=== PATIENT | male | born 1990 | race Two or more races ===

== ENCOUNTER 2021-08-17 10:52 | Emergency (ER) | payer BC ==
[2021-08-17] MEDS ORDERED: Ibuprofen 600 MG Tab PO ONE (11:29)
== END 2021-08-17 13:09 | disposition home or self-care (01) ==
LOC: JP.ED 10:52
DX: S82.831A Other fracture of upper and lower end of right fibula, initial encounter for closed fracture (principal); F17.210 Nicotine dependence, cigarettes, uncomplicated; X50.9XXA Other and unspecified overexertion or strenuous movements or postures, initial encounter
CPT/HCPCS: 29515; 73610; 99282; 99283; A9270

== ENCOUNTER 2022-06-21 12:25 | Emergency (ER) | payer BC ==
[2022-06-21] MEDS ORDERED: Ketorolac 30 MG/ML SDV IM ONE (12:54)
== END 2022-06-21 13:46 | disposition home or self-care (01) ==
LOC: JP.ED 12:25
DX: S82.821A Torus fracture of lower end of right fibula, initial encounter for closed fracture (principal); W22.09XA Striking against other stationary object, initial encounter
CPT/HCPCS: 73610-26-RT; 73610-RT; 96372; 99282; 99283; J1885